=== PATIENT | female | born 1960 | race Caucasian/White ===

== ENCOUNTER 2017-03-04 06:49 | Day surgery (SDC) | payer OTHER ==
[2017-03-03 16:51] VITALS: BMI 29.7
[2017-03-04] MEDS ORDERED: ROPIVACAINE HCL 0.5% 30ML VIAL ONE (08:23)
[2017-03-04] MEDS ORDERED: MIDAZOLAM HCL 2 MG/2 ML SINGLE DOSE VIAL ONE ×2 (08:24)
[2017-03-04] MEDS ORDERED: PROPOFOL 20 ML ONE ×2 (08:53→10:10)
[2017-03-04] MEDS ORDERED: ONDANSETRON 4 MG/2 ML VIAL IVPUSH PRN (09:04)
--- NOTE | 2017-03-04 09:07 | HP ---
[facility]ellite [facility] - Chief Complaint Chief Complaint: right shoulder pain History of Present Illness: rightshoulder pain History Source: Patient Limitations to Obtaining History: No Limitations - Past Medical History Allergies/Adverse Reactions: Allergies Allergy/AdvReac Type Severity Reaction Status Date / Time COMPAZINE Allergy Severe Uncoded 03/04/17 08:19 - Current Medications Current Medications: Home Medications Medication Instructions Recorded Escitalopram Oxalate [Lexapro -] 20 mg PO DAILY 03/03/17 Gabapentin 300 mg PO QID 03/03/17 Lamotrigine [Lamictal Xr] 200 mg PO HS 03/03/17 [place] Carbonate [Eskalith -] 300 mg PO DAILY 03/03/17 [place] Carbonate [Eskalith -] 600 mg PO HS 03/03/17 Satellite Physical Exam - Physical Examination Vital Signs: Vital Signs Period Temp Pulse Resp BP Sys/Brady Pulse Ox Last 24 Hr 98.1 F-98.1 F 61-61 20-20 116-116/65-65 96 General Appearance: Well Nourished ENT: Clear Lung: Clear to auscultation Heart: Regular rate & rhythm Breasts: Soft Abdomen: Soft Extremities: No edema Satellite Impression/Plan - Impression/Plan Impression: right shoulder impingement syndrome, RTC tear Operative Procedure: right shoulder arthroscopy, decompression, RTC repair Date to be Performed: 03/04/17
[2017-03-04] MEDS ORDERED: LACTATED RINGERS SOLUTION 1,000 ML IV SCH (09:15)
[2017-03-04] MEDS ORDERED: ROCURONIUM BROMIDE 50 MG/5 ML VIAL ONE (09:17)
[2017-03-04] MEDS ORDERED: ceFAZolin SODIUM 1 GM VIAL IVPB ONE (09:20)
[2017-03-04] MEDS ORDERED: NEOSTIGMINE METHYLSULFATE 0.5 MG/ML - 10 ML MDV ONE (10:39)
[2017-03-04] MEDS ORDERED: LABETALOL HCL 5 MG/1 ML (100MG/20 ML VIAL) ONE (10:40)
[2017-03-04] MEDS ORDERED: LIDOCAINE HCL/PF 2% SDV 5ML VIAL ONE (10:40)
[2017-03-04] MEDS ORDERED: LIDOCAINE HCL 2% JELLY (5 ML/TUBE) ONE (10:40)
[2017-03-04] MEDS ORDERED: DEXAMETHASONE SOD PHOSPHATE 4 MG/1 ML VIAL ONE (10:40)
[2017-03-04] MEDS ORDERED: PHENYLEPHRINE HCL 10 MG/1 ML SINGLE DOSE VIAL ONE (10:40)
[2017-03-04] MEDS ORDERED: GLYCOPYRROLATE 0.2 MG/1 ML VIAL ONE (10:40)
--- NOTE | 2017-03-04 10:41 | OP ---
Operative Note - Note: Operative Date: 03/04/17 Pre-Operative Diagnosis: right shoulder RTC tear, subacromial impingement Operation: right shoulder arthroscopy, subacromial decompression, distal clavicle excision, mini open RTC repair Implants: Arthrex x 2 Swivel locks, fiber wire x 4 Surgeon: Guilherme Almendarez Telepathist: Chase Bañuelos A. [facility] 2nd Ass't) Anesthesiologist/PIER MASTER: Lilli Walton MD Anesthesia: General Estimated Blood Loss (mls): 75 Drains, Volume Out (mls): 0 Blood Volume Replaced (mls): 0 Fluid Volume Replaced (mls): 1,000 Operative Report Dictated: Yes
[2017-03-04] MEDS ORDERED: ACETAMINOPHEN 325 MG TABLET (FP) ONE (11:20)
[2017-03-04 11:49] VITALS: TEMP 97.8
[2017-03-04] MEDS ORDERED: ACETAMINOPHEN 325 MG TABLET (FP) PO ONE (12:00)
[2017-03-04] MEDS ORDERED: oxyCODONE HCL 5 MG TABLET PO PRN (12:54)
[2017-03-04] MEDS ORDERED: oxyCODONE HCL 5 MG TABLET ONE (12:59)
[2017-03-04 15:49] VITALS: BP 110/60; PULSE 64
--- NOTE | 2017-03-05 10:43 | OP ---
DATE OF OPERATION: 03/04/2017 PREOPERATIVE DIAGNOSES: Right shoulder rotator cuff tear, subacromial impingement syndrome. POSTOPERATIVE DIAGNOSES: Right shoulder rotator cuff tear, subacromial impingement syndrome. PROCEDURE: Right shoulder arthroscopy, subacromial decompression, distal clavicle excision, and mini open rotator cuff repair. SURGEON: Katherin Almendarez MD HEEL COVERER: Chase Bañuelos MD SECOND HEEL COVERER: BRENDA Pro ANESTHESIOLOGIST: Lilli Walton MD ANESTHESIA: Right interscalene block and LMA anesthesia. DRAINS: None. COMPLICATIONS: None. BLOOD LOSS: 75 mL BLOOD GIVEN: None. FLUID REPLACEMENT: 700 mL INDICATION FOR PROCEDURE: This patient is a 56-year-old female with a preoperative diagnosis of a right shoulder impingement syndrome, AC joint arthritis, and a rotator cuff tear. After understanding the potential risks, complications, alternatives, benefits of surgery, risks of nonsurgical treatment, the patient elected to undergo this procedure. DESCRIPTION OF PROCEDURE: Patient was brought to the operating room, peripheral IV placed, IV sedation given. One gram of IV Ancef was given. Right interscalene block was performed. LMA anesthesia was induced. She was placed into the beach chair position with ample padding throughout. The right upper extremity was prepped and draped in sterile fashion. The bony landmarks were marked out with a marking pen. Posterior portal established. A diagnostic arthroscopy was performed. Patient was seen to have a significant undersurface tear of the supraspinatus. The biceps tendon was not visualized. The labrum looked fine. The glenohumeral joint looked fine. There was no osteoarthritis. Next, our attention turned to the subacromial space where the patient had a lot of subacromial bursitis. A lateral portal was established under direct visualization, and an ArthroCare wand used in extensive debridement/soft tissue bursectomy. This revealed a large subacromial and subclavicular spur. Both of which were taken down with a 5.5-mm oval bur. It was straightened up in reverse with the shaver and later with the rasp. After subacromial decompression and an extensive debridement, we looked at the top surface of the rotator cuff. There was a very thin film of rotator cuff still intact. There were no humeral ridges or spurs. Next, I converted to a mini open rotator cuff repair. The lateral portal incision was extended with a number 15 scalpel blade. Subcutaneous hemostasis achieved with Bovie cautery. Additional bursectomy performed. A Sully retractor was placed deep into the wound. The arthroscopy fluid evacuated and a rasp used in an open fashion to fine tune the subacromial and subclavicular decompression. Next, we used 4 FiberWire sutures in a double-grab technique. Then, I thread the anterior 4 tails through a SwiveLock and the posterior 4 tails through a SwiveLock and brought it down into the humeral head. This advanced the rotator cuff and grabbed a good substance of it and brought it down more laterally. The humeral head moved as a unit with the rotator cuff, and overall, it looked much better. The area of the thin film was now occupied by rotator cuff. The area was copiously irrigated and washed out, and 0 Vicryl used to close the deltoid fascial layer, 2-0 Vicryl used to close the deep dermal layer. Final skin reapproximation was done with 3-0 V-Loc suture. The posterior portal closed with 3-0 nylon. The area was then washed and dried, covered with Aquacel. The patient was extubated and taken down out of the beach chair position. She did receive 1 g of Ancef at the beginning of the case. Total operative time was about 45 minutes. There were no complications during the case. The patient tolerated the procedure quite well. Blood loss was 75 mL. She was brought to the ambulatory recovery room in stable condition after a shoulder immobilizer was applied. Chase Bañuelos MD dictating for MD KATHERIN Riojas M.D. [id number]
--- NOTE | 2017-03-05 16:51 | PATH ---
Surgical Pathology Report Patient Name: ELTON AVALOS [facility]. Rec. #: [id number] /Age/Gender: 1960 (Age: 56) / F Account: [id number] Location: [facility] SURGICAL Taken: 03/04/2017 Received: 03/04/2017 Reported: 03/05/2017 Physicians: Chase Bañuelos M.D. Specimen(s) Received RIGHT SHOULDER SHAVINGS Clinical History Torn rotator cuff Final Diagnosis SHOULDER SHAVINGS, RIGHT, ARTHROSCOPY AND ROTATOR CUFF REPAIR: BENIGN FIBROCARTILAGINOUS TISSUE, ADIPOSE TISSUE, SKELETAL MUSCLE, BONE, AND SYNOVIUM. Electronically Signed Marla Ramirez M.D. Gross Description Received in formalin, labeled "right shoulder shavings," is a 4.5 x 3.3 x 0.3 cm. aggregate of christianson-yellow soft tissue fragments. A medical office representative portion is submitted in one cassette. 03/04/201703/04/2017
== END 2017-03-04 14:15 | disposition home or self-care (01) ==
LOC: JASU-SURG 06:49
PROVIDERS: ATTEND Orthopaedic Surgery
PROC: 0LQ10ZZ Repair Right Shoulder Tendon, Open Approach (ICD-10-PCS; 2017-03-04)
PROC: 0RBJ4ZZ Excision of Right Shoulder Joint, Percutaneous Endoscopic Approach (ICD-10-PCS; principal; 2017-03-04 09:00)
PROC: 0PB94ZZ Excision of Right Clavicle, Percutaneous Endoscopic Approach (ICD-10-PCS; 2017-03-04 09:00)
DX: M75.101 Unspecified rotator cuff tear or rupture of right shoulder, not specified as traumatic (principal); M75.41 Impingement syndrome of right shoulder
CPT/HCPCS: 88304-TC; 94760

== ENCOUNTER 2018-11-16 08:49 | Inpatient (IN) | payer OTHER ==
[2018-11-16 09:43] VITALS: BMI 26.6
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
[2018-11-16] MEDS ORDERED: MAGNESIUM HYDROX 2400MG/30ML ORAL SUSPENSION 30 ML CUP PO PRN (11:25)
[2018-11-16] MEDS ORDERED: MENTHOL/PHENOL 1 EACH UD MM PRN (11:25)
[2018-11-16] MEDS ORDERED: MAG HYDROX/AL HYDROX/SIMETH 30 ML UNIT-DOSE CUP PO PRN (11:25)
[2018-11-16] MEDS ORDERED: LOPERAMIDE HCL 2 MG CAPSULE PO PRN (11:25)
[2018-11-16] MEDS ORDERED: ACETAMINOPHEN 325 MG TABLET (FP) PO PRN (11:25)
[2018-11-16] MEDS ORDERED: P-EPHED 60MG/TRIPROLIDI 2.5MG TABLET PO PRN (11:25)
[2018-11-16] MEDS ORDERED: guaiFENesin 200 MG/10 ML 10 ML UNIT-DOSE CUPS PO PRN (11:25)
[2018-11-16] MEDS ORDERED: MAGNESIUM CITRATE 300 ML BOTTLE PO PRN (11:25)
[2018-11-16] MEDS: lamoTRIgine 100 MG TABLET (FP) PO SCH ×2 (13:29→21:03)
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
[2018-11-16 17:11] LABS: HEMATOCRIT 35.1 % (32.4-45.2); HEMOGLOBIN 11.8 GM/dL (10.7-15.3); MCH 34.7 pg (25.7-33.7); MCHC 33.5 g/dl (32.0-36.0); MEAN CELL VOLUME 103.7 fl (80-96); MEAN PLT VOLUME 9.1 fl (7.5-11.1); PLATELET COUNT 142 K/MM3 (134-434); RBC 3.39 M/mm3 (3.60-5.2); RDW 12.2 % (11.6-15.6)
[2018-11-16 17:20] LABS: ALBUMIN 3.6 g/dl (3.4-5.0); BILIRUBIN,TOTAL 0.6 mg/dL (0.2-1); BLOOD UREA NITROGEN 11.1 mg/dL (7-18); CALCIUM 9.1 mg/dL (8.5-10.1); POTASSIUM 3.9 mmol/L (3.5-5.1); TOT PROT 6.5 g/dl (6.4-8.2)
[2018-11-16] MEDS: THIAMINE HCL 100 MG TABLET (FP) PO SCH (21:03)
[2018-11-16] MEDS: MELATONIN 5 MG TABLETS PO PRN (21:03)
[2018-11-17] MEDS: lamoTRIgine 100 MG TABLET (FP) PO SCH ×2 (10:07→21:40)
[2018-11-17] MEDS: PRENATAL VITAMINS W/ FOLIC ACID TABLET (FP) PO SCH (10:07)
[2018-11-17 15:05] LABS: EPI CELLS 2.9 /HPF (0-5/HPF); HYALINE CASTS 1 /lpf (0-8); PH,URINE 7.5 (5.0-8.0); URINE APPEARANCE CLEAR; URINE BACTERIA 50.8 /hpf (NEGATIVE); URINE BILIRUBIN NEGATIVE (NEGATIVE); URINE COLOR YELLOW; URINE GLUCOSE (UA) NEGATIVE (NEGATIVE); URINE KETONE NEGATIVE (NEGATIVE); URINE LEUK ESTERASE TRACE (NEGATIVE); URINE NITRITE NEGATIVE (NEGATIVE); URINE PROTEIN NEGATIVE (NEGATIVE); URINE RBC 1 /hpf (0-4); URINE UROBILINOGEN 0.2 mg/dL (0.2-1.0); URINE WBC 1 /hpf (0-5)
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
[2018-11-17] MEDS: GABAPENTIN 300 MG CAPSULE (FP) PO SCH ×2 (18:40→21:40)
[2018-11-17] MEDS: THIAMINE HCL 100 MG TABLET (FP) PO SCH (21:39)
[2018-11-17] MEDS: TOPIRAMATE 25 MG TABLET (FP) PO SCH (21:42)
[2018-11-17] MEDS: LITHIUM CARBONATE 300 MG CAPSULE (FP) PO SCH (21:42)
[2018-11-17] MEDS ORDERED: PATIENT'S OWN MEDICATION (NON-FORMULARY) (Fluoxetine Hcl [Prozac] 40 MG) PO SCH (22:00)
[2018-11-18] MEDS: TOPIRAMATE 25 MG TABLET (FP) PO SCH ×3 (06:16→21:30)
[2018-11-18] MEDS ORDERED: PT OWN MED DRAWER 7, Y5N ONE (09:10)
[2018-11-18] MEDS: GABAPENTIN 300 MG CAPSULE (FP) PO SCH ×4 (10:03→21:30)
[2018-11-18] MEDS: PRENATAL VITAMINS W/ FOLIC ACID TABLET (FP) PO SCH (10:03)
[2018-11-18] MEDS: LITHIUM CARBONATE 300 MG CAPSULE (FP) PO SCH ×2 (10:03→21:30)
[2018-11-18] MEDS: lamoTRIgine 100 MG TABLET (FP) PO SCH ×2 (10:03→21:30)
[2018-11-18] MEDS: FLUoxetine HCL 20 MG CAPSULE (FP) PO SCH (10:03)
[2018-11-18] MEDS: THIAMINE HCL 100 MG TABLET (FP) PO SCH (21:30)
[2018-11-19] MEDS: TOPIRAMATE 25 MG TABLET (FP) PO SCH ×3 (06:42→21:41)
[2018-11-19] MEDS: FLUoxetine HCL 20 MG CAPSULE (FP) PO SCH (10:32)
[2018-11-19] MEDS: GABAPENTIN 300 MG CAPSULE (FP) PO SCH ×4 (10:33→21:41)
[2018-11-19] MEDS: lamoTRIgine 100 MG TABLET (FP) PO SCH ×2 (10:33→21:41)
[2018-11-19] MEDS: LITHIUM CARBONATE 300 MG CAPSULE (FP) PO SCH ×2 (10:33→21:41)
[2018-11-19] MEDS: PRENATAL VITAMINS W/ FOLIC ACID TABLET (FP) PO SCH (10:33)
--- NOTE | 2018-11-19 14:44 | PN ---
[facility] Progress Note Note: Psychiatric nurse practitioner note: [place] level 0.4. Will continue current dose of lithium.
[2018-11-19] MEDS: THIAMINE HCL 100 MG TABLET (FP) PO SCH (21:41)
[2018-11-20] MEDS: TOPIRAMATE 25 MG TABLET (FP) PO SCH ×3 (06:25→21:30)
[2018-11-20] MEDS: PRENATAL VITAMINS W/ FOLIC ACID TABLET (FP) PO SCH (10:37)
[2018-11-20] MEDS: FLUoxetine HCL 20 MG CAPSULE (FP) PO SCH (10:37)
[2018-11-20] MEDS: lamoTRIgine 100 MG TABLET (FP) PO SCH ×2 (10:37→21:30)
[2018-11-20] MEDS: GABAPENTIN 300 MG CAPSULE (FP) PO SCH ×4 (10:38→21:30)
[2018-11-20] MEDS: LITHIUM CARBONATE 300 MG CAPSULE (FP) PO SCH ×2 (10:38→21:30)
[2018-11-20] MEDS: IBUPROFEN 400 MG TABLET (FP) PO PRN (15:46)
[2018-11-20] MEDS: THIAMINE HCL 100 MG TABLET (FP) PO SCH (21:30)
[2018-11-20] MEDS: MELATONIN 5 MG TABLETS PO PRN (21:31)
[2018-11-21] MEDS: TOPIRAMATE 25 MG TABLET (FP) PO SCH ×3 (05:35→21:16)
[2018-11-21] MEDS: lamoTRIgine 100 MG TABLET (FP) PO SCH ×2 (10:20→21:16)
[2018-11-21] MEDS: GABAPENTIN 300 MG CAPSULE (FP) PO SCH ×4 (10:20→21:16)
[2018-11-21] MEDS: PRENATAL VITAMINS W/ FOLIC ACID TABLET (FP) PO SCH (10:20)
[2018-11-21] MEDS: FLUoxetine HCL 20 MG CAPSULE (FP) PO SCH (10:20)
[2018-11-21] MEDS: LITHIUM CARBONATE 300 MG CAPSULE (FP) PO SCH ×2 (10:20→21:16)
[2018-11-21] MEDS: MELATONIN 5 MG TABLETS PO PRN (21:16)
[2018-11-21] MEDS: THIAMINE HCL 100 MG TABLET (FP) PO SCH (21:16)
[2018-11-21] MEDS: IBUPROFEN 400 MG TABLET (FP) PO PRN (22:08)
[2018-11-22] MEDS: TOPIRAMATE 25 MG TABLET (FP) PO SCH ×3 (06:33→21:48)
[2018-11-22] MEDS: IBUPROFEN 400 MG TABLET (FP) PO PRN (10:11)
[2018-11-22] MEDS: PRENATAL VITAMINS W/ FOLIC ACID TABLET (FP) PO SCH (10:11)
[2018-11-22] MEDS: GABAPENTIN 300 MG CAPSULE (FP) PO SCH ×4 (10:11→21:48)
[2018-11-22] MEDS: FLUoxetine HCL 20 MG CAPSULE (FP) PO SCH (10:11)
[2018-11-22] MEDS: lamoTRIgine 100 MG TABLET (FP) PO SCH ×2 (10:12→21:48)
[2018-11-22] MEDS: LITHIUM CARBONATE 300 MG CAPSULE (FP) PO SCH ×2 (10:12→21:48)
[2018-11-22] MEDS: THIAMINE HCL 100 MG TABLET (FP) PO SCH (21:47)
[2018-11-22] MEDS: MELATONIN 5 MG TABLETS PO PRN (21:48)
[2018-11-22] MEDS: MINERAL OIL/PETROLAT/WATER TOPICAL CREAM 113 GM JAR TP SCH (21:49)
[2018-11-23] MEDS: TOPIRAMATE 25 MG TABLET (FP) PO SCH ×3 (06:50→21:21)
[2018-11-23] MEDS: FLUoxetine HCL 20 MG CAPSULE (FP) PO SCH (09:53)
[2018-11-23] MEDS: MINERAL OIL/PETROLAT/WATER TOPICAL CREAM 113 GM JAR TP SCH ×2 (09:53→21:22)
[2018-11-23] MEDS: PRENATAL VITAMINS W/ FOLIC ACID TABLET (FP) PO SCH (09:54)
[2018-11-23] MEDS: lamoTRIgine 100 MG TABLET (FP) PO SCH ×2 (09:54→21:21)
[2018-11-23] MEDS: LITHIUM CARBONATE 300 MG CAPSULE (FP) PO SCH ×2 (09:54→21:21)
[2018-11-23] MEDS: GABAPENTIN 300 MG CAPSULE (FP) PO SCH ×4 (09:54→21:21)
[2018-11-23] MEDS: IBUPROFEN 400 MG TABLET (FP) PO PRN (14:26)
[2018-11-23] MEDS: THIAMINE HCL 100 MG TABLET (FP) PO SCH (21:21)
[2018-11-23] MEDS: MELATONIN 5 MG TABLETS PO PRN (21:21)
[2018-11-24] MEDS: TOPIRAMATE 25 MG TABLET (FP) PO SCH ×3 (06:10→21:21)
[2018-11-24] MEDS: LITHIUM CARBONATE 300 MG CAPSULE (FP) PO SCH ×2 (09:30→21:21)
[2018-11-24] MEDS: GABAPENTIN 300 MG CAPSULE (FP) PO SCH ×4 (09:30→21:21)
[2018-11-24] MEDS: lamoTRIgine 100 MG TABLET (FP) PO SCH ×2 (09:30→21:21)
[2018-11-24] MEDS: PRENATAL VITAMINS W/ FOLIC ACID TABLET (FP) PO SCH (09:30)
[2018-11-24] MEDS: FLUoxetine HCL 20 MG CAPSULE (FP) PO SCH (09:31)
[2018-11-24] MEDS: MINERAL OIL/PETROLAT/WATER TOPICAL CREAM 113 GM JAR TP SCH ×2 (09:31→21:23)
[2018-11-24] MEDS: THIAMINE HCL 100 MG TABLET (FP) PO SCH (21:20)
[2018-11-24] MEDS: MELATONIN 5 MG TABLETS PO PRN (21:21)
[2018-11-24] MEDS: IBUPROFEN 400 MG TABLET (FP) PO PRN (21:22)
[2018-11-25] MEDS: TOPIRAMATE 25 MG TABLET (FP) PO SCH ×3 (06:12→21:11)
[2018-11-25] MEDS ORDERED: PT OWN MED DRAWER 7, Y5N ONE (09:24)
[2018-11-25] MEDS: FLUoxetine HCL 20 MG CAPSULE (FP) PO SCH (10:07)
[2018-11-25] MEDS: GABAPENTIN 300 MG CAPSULE (FP) PO SCH ×4 (10:07→21:11)
[2018-11-25] MEDS: PRENATAL VITAMINS W/ FOLIC ACID TABLET (FP) PO SCH (10:07)
[2018-11-25] MEDS: LITHIUM CARBONATE 300 MG CAPSULE (FP) PO SCH ×2 (10:07→21:11)
[2018-11-25] MEDS: MINERAL OIL/PETROLAT/WATER TOPICAL CREAM 113 GM JAR TP SCH ×2 (10:07→21:13)
[2018-11-25] MEDS: lamoTRIgine 100 MG TABLET (FP) PO SCH ×2 (10:07→21:11)
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
[2018-11-25] MEDS: MELATONIN 5 MG TABLETS PO PRN (21:11)
[2018-11-25] MEDS: THIAMINE HCL 100 MG TABLET (FP) PO SCH (21:11)
[2018-11-26] MEDS: TOPIRAMATE 25 MG TABLET (FP) PO SCH (06:00)
[2018-11-26 07:13] VITALS: BP 117/75; PULSE 64; TEMP 98.1
[2018-11-26] MEDS: GABAPENTIN 300 MG CAPSULE (FP) PO SCH (09:01)
[2018-11-26] MEDS: lamoTRIgine 100 MG TABLET (FP) PO SCH (09:01)
[2018-11-26] MEDS: LITHIUM CARBONATE 300 MG CAPSULE (FP) PO SCH (09:01)
[2018-11-26] MEDS: FLUoxetine HCL 20 MG CAPSULE (FP) PO SCH (09:01)
[2018-11-26] MEDS: PRENATAL VITAMINS W/ FOLIC ACID TABLET (FP) PO SCH (09:01)
[2018-11-26] MEDS: MINERAL OIL/PETROLAT/WATER TOPICAL CREAM 113 GM JAR TP SCH (09:03)
== END 2018-11-26 09:05 | disposition home or self-care (01) | DRG 895 ==
LOC: YASAS 08:49 → Y3E 11:23
PROVIDERS: ADMIT Surgery; ATTEND Surgery
PROC: HZ42ZZZ Group Counseling for Substance Abuse Treatment, Cognitive-Behavioral (ICD-10-PCS; principal; 2018-11-16)
DX: F10.20 Alcohol dependence, uncomplicated (principal); F31.81 Bipolar II disorder; G40.909 Epilepsy, unspecified, not intractable, without status epilepticus; Z87.891 Personal history of nicotine dependence
CPT/HCPCS: 36415; 80053; 80178; 81003; 82962; 85027; 86480; 86593